=== PATIENT | male | born 1985 | race African-American/Black ===

== ENCOUNTER 2017-07-04 10:52 | Emergency (ER) | payer OTHER ==
[~2017-07-04] VITALS: Ht 198.1 cm; Wt 105.5 kg
[2017-07-04 10:54] VITALS: BP 134/70; PULSE 78; TEMP 99
[2017-07-04] MEDS ORDERED: FLEXERIL 1010 MG/TAB PO (11:48)
== END 2017-07-04 12:19 | disposition home or self-care (01) ==
LOC: COL.ER 10:52
DX: M25.552 Pain in left hip (principal); M62.838 Other muscle spasm; F17.210 Nicotine dependence, cigarettes, uncomplicated; X50.0XXA Overexertion from strenuous movement or load, initial encounter